=== PATIENT | male | born 1960 | race Caucasian/White ===

== ENCOUNTER 2017-02-19 22:37 | Emergency (ER) | payer SELFPAY ==
[~2017-02-19] VITALS: Ht 180.3 cm; Wt 117.9 kg
[~2017-02-19 22:37] MED LIST: CIPROFLOXACIN500 MG PO; PHENERGAN25 M1 PO; PROTONIX TR40 MG PO; Phenergan25 MG PO; REG INSULIN; RELION INSULIN SC; ZESTRIL,PRINIVI10 MG PO
[2017-02-19 22:53] VITALS: BP 192/87
[2017-02-20] MEDS ORDERED: Motrin,Rufen800 MG PO (00:18)
== END 2017-02-20 01:09 | disposition home or self-care (01) ==
LOC: ED 22:37
DX: M25.562 Pain in left knee (principal); Z88.0 Allergy status to penicillin